=== PATIENT | male | born 1960 | race Caucasian/White ===

== ENCOUNTER 2021-03-14 06:48 | Day surgery (SDC) | payer OTHER, SELFPAY ==
[2021-03-14 07:15] VITALS: BP 134/83; PULSE 56; RESP 16; TEMP 36.4; O2SAT 95; BMI 30.7
[2021-03-14] MEDS: Lactated Ringers 1,000 ML 100 ML IV (07:34)
--- NOTE | 2021-03-14 07:34 | HP.PCM_ITS ---
Problem List (1) History of colon cancer Status: Acute History of Present Illness Date of Admission: 03/14/21 The patient is a 60 year old M for a colonoscopy. He has a personal history of colon cancer. His most recent colonoscopy was December 2015. He has had both a ascending and splenic flexure colon cancer resected. He otherwise feels that he has good health. He has no specific complaints today. No bright red blood per rectum or melena Past Medical History Allergies No Known Allergies Allergy (Verified 03/14/21 07:13) Home Medications: Ambulatory Orders Medication Instructions Recorded Aspirin [Aspirin, Baby] 81 mg PO DAILY@0800 01/26/16 Cholecalciferol (VIT D3) [Vitamin 5,000 unit PO DAILY 01/26/16 D] metFORMIN HCl [Glucophage] 500 mg PO BIDCM 01/26/16 Smoking Status: Never smoker Tobacco Use: Non-smoker Review of Systems Constitutional: Denies: Fever Cardiovascular: Denies: Chest Pain Respiratory: Denies: Cough Gastrointestinal: Denies: Abdominal Pain, Melena Endocrine: Denies: Change in Body Habitus VTE Information - Inpt Only VTE Present on Admission: No - Physical Exam Vitals/I&O's: Vital Signs Temp Pulse Resp BP Pulse Ox 97.5 F L 56 L 16 134/83 H 95 03/14/21 07:15 03/14/21 07:15 03/14/21 07:15 03/14/21 07:15 03/14/21 07:15 Oxygen Delivery Method Room Air Weight: 201 lb 11.567 oz Body Mass Index (BMI) 30.7 General: Alert, Oriented x3, Cooperative, No apparent distress Oral: Moist Mucosa Lungs: Normal air movement Cardiovascular: Regular rate, Regular Rhythm Abdomen: Soft, Non Tender Extremities: No Calf Tenderness Current Medications Lactated Ringer's () 1,000 mls @ 100 mls/hr IV .Q10H [facility] Assessment/Plan All Active Problems History of colon cancer (Acute) The patient presents via open access today for a colonoscopy with possible biopsy or polypectomy is indicated. He is aware of the technique, benefit, risk, alternatives. He has had an opportunity to ask and have questions answered. We will proceed as noted. Rupert Aviles M.D., F.A.C.S.
[2021-03-14 07:40] LABS: Bedside Glucose 90 mg/dL (70-110)
[2021-03-14 08:27] VITALS: BP 134/83; BP 96/62; PULSE 84; RESP 18; TEMP 36.4; O2SAT 93
--- NOTE | 2021-03-14 08:29 | OP.CCLET_ITS ---
03/14/2021 Helena Mae [address] [place] [address] Re : Colonoscopy procedure for Shan Goyal Dear Dr. Mae This procedure was performed on Sunday, March 14, 2021. My impressions and recommendations are as follows: Impressions : - Hemorrhoids found on perianal exam. - Patent functional end-to-end colo-colonic anastomosis, characterized by healthy appearing mucosa. - Diverticulosis in the sigmoid colon. - No specimens collected. Recommendations : - Discharge patient to home. - Resume previous diet. - Continue present medications. - Repeat colonoscopy in 5 years for surveillance. My findings are described in the full procedure note, which is enclosed. If I can be of further assistance, please feel free to contact me at Doctor phone number(s): Work: . Sincerely, Rupert Aviles MD 03/14/2021 8:29:27 AM This report has been signed electronically.
--- NOTE | 2021-03-14 08:29 | OP.COLON_ITS ---
Patient Name: Shan Goyal Procedure Date: 03/14/2021 8:03 AM Date of : 1960 Age: 60 Procedure: Colonoscopy Indications: High risk colon cancer surveillance: Personal history of colon cancer Providers: Rupert Aviles MD Referring MD: Helena Mae Medicines: See the Anesthesia note for documentation of the administered medications Patient Profile: Last Colonoscopy: December 2015. Complications: No immediate complications. Procedure: Pre-Anesthesia Assessment: - Prior to the procedure, a History and Physical was performed, and patient medications and allergies were reviewed. The patient's tolerance of previous anesthesia was also reviewed. The risks and benefits of the procedure and the sedation options and risks were discussed with the patient. All questions were answered, and informed consent was obtained. Prior Anticoagulants: The patient has taken no previous anticoagulant or antiplatelet agents. ASA Grade Assessment: II - A patient with mild systemic disease. After reviewing the risks and benefits, the patient was deemed in satisfactory condition to undergo the procedure. After I obtained informed consent, the scope was passed under direct vision. Throughout the procedure, the patient's blood pressure, pulse, and oxygen saturations were monitored continuously. The colonoscope was introduced through the anus and advanced to the cecum, identified by appendiceal orifice and ileocecal valve. The colonoscopy was performed without difficulty. The patient tolerated the procedure well. The quality of the bowel preparation was good. The ileocecal valve and the appendiceal orifice were photographed. Scope In: 8:14:23 AM Scope Withdrawal Time 0 hours 6 minutes 44 seconds Scope Out: 8:24:45 AM Total Procedure Duration Time 0 hours 10 minutes 22 seconds Findings: Hemorrhoids were found on perianal exam. There was evidence of a prior functional end-to-end colo-colonic anastomosis at the splenic flexure. This was patent and was characterized by healthy appearing mucosa. Scattered diverticula were found in the sigmoid colon. Impression: - Hemorrhoids found on perianal exam. - Patent functional end-to-end colo-colonic anastomosis, characterized by healthy appearing mucosa. - Diverticulosis in the sigmoid colon. - No specimens collected. Recommendation: - Discharge patient to home. - Resume previous diet. - Continue present medications. - Repeat colonoscopy in 5 years for surveillance. Procedure Code(s): --- Professional --- G0105, Colorectal cancer screening; colonoscopy on individual at high risk Diagnosis Code(s): --- Professional --- Z85.038, Personal history of other malignant neoplasm of large intestine K64.9, Unspecified hemorrhoids Z98.0, Intestinal bypass and anastomosis status K57.30, Diverticulosis of large intestine without perforation or abscess without bleeding CPT copyright 2017 [employer]. All rights reserved. The codes documented in this report are preliminary and upon business support professional review may be revised to meet current compliance requirements. Rupert Aviles MD 03/14/2021 8:29:27 AM This report has been signed electronically. Number of Addenda: 0 Note Initiated On: 03/14/2021 8:03 AM
[2021-03-14 08:30] VITALS: BP 100/58; BP 134/83; PULSE 79; RESP 18; O2SAT 95
[2021-03-14 08:35] VITALS: BP 134/83; BP 95/58; PULSE 78; RESP 18; O2SAT 94
[2021-03-14 08:40] VITALS: BP 100/64; BP 134/83; PULSE 76; RESP 18; TEMP 36.6; O2SAT 97
[2021-03-14 09:02] VITALS: BP 134/83
== END 2021-03-14 09:06 | disposition home or self-care (01) ==
LOC: EN 06:52 → AC 06:54
PROVIDERS: PCP Internal Medicine; Referring Provider Internal Medicine; Visit Provider Surgery
PROC: 0DJD8ZZ Inspection of Lower Intestinal Tract, Via Natural or Artificial Opening Endoscopic (ICD-10-PCS; CPT 45378; principal; 2021-03-14 07:55)
DX: Z12.11 Encounter for screening for malignant neoplasm of colon (principal); K57.30 Diverticulosis of large intestine without perforation or abscess without bleeding; K64.9 Unspecified hemorrhoids; Z98.0 Intestinal bypass and anastomosis status; Z79.82 Long term (current) use of aspirin; Z85.038 Personal history of other malignant neoplasm of large intestine; Z92.21 Personal history of antineoplastic chemotherapy
CPT/HCPCS: 45378; 82962; J7120; J2405

== ENCOUNTER 2023-02-16 16:49 | Emergency (ER) | payer OTHER, SELFPAY ==
[2023-02-16 16:50] VITALS: BP 175/153; PULSE 103; RESP 18; TEMP 36.8; O2SAT 97; BMI 30.9
--- NOTE | 2023-02-16 17:49 | CT_ITS ---
STUDY: CT Abdomen And Pelvis W/O Contrast Injection 02/16/2023 6:30 PM REASON FOR EXAM: Male, 62 years old. RT SIDED ABD PAIN RADIATING INTO BACK HX:CONON CANCER WITH COLECTOMY,CHOLECYSTECTOMY flank pain Individualized dose optimization techniques were used for this CT. COMPARISON: None. TECHNIQUE: CT Abdomen And Pelvis W/O Contrast Injection FINDINGS: There are atherosclerotic calcifications of visualized coronary arteries. The visualized portions of the heart are within normal limits. There is decreased attenuation of the liver consistent with steatosis. There are surgical clips in the gallbladder fossa consistent with a prior cholecystectomy. There are multiple benign calcified granulomata of the spleen. Normal pancreas. Normal bilateral adrenal glands. Mild hydronephrosis caused by right proximal 3.3 mm and 3.7 mm ureteral stone. Non obstructive 2 mm left renal parenchymal stones. Normal visualized stomach. Prior large bowel surgery. There are multiple colonic diverticula consistent with diverticulosis. There is non-visualization of the appendix. There are calcifications of the abdominal aorta. This is consistent for atherosclerotic disease. There is NO abdominal aortic aneurysm. Vascular workup can be obtained based on clinical correlation. Normal inferior vena cava. Subcentimeter mesenteric lymph nodes. Normal urinary bladder. There is an umbilical hernia containing fat. There are diffuse degenerative changes of the visualized lumbar spine. CT/Abdomen/Pelvis without Cont IMPRESSION: (NOT LISTED IN ORDER OF SIGNIFICANCE) Fatty liver. Mild hydronephrosis caused by right proximal 3.3 mm and 3.7 mm ureteral stone. There are surgical clips in the gallbladder fossa consistent with a prior cholecystectomy. Other findings as above. Electronically Signed: John Mcfarlane MD at 18:34 EDT ,
--- NOTE | 2023-02-16 17:50 | EX.ED.DYSGE1 ---
HPI History of Present Illness Chief Complaint: Abd Pain Detail of Chief Complaint: Right flank pain Informant: patient Narrative Narrative: Patient presents with right flank pain that started today at work. He describes pain from the right CVA around into the right mid upper abdomen. He had his gallbladder removed several years ago but states the pain felt similar to that. He had a small bowel movement without improvement in his pain. He was nauseated. He states at this time pain is significantly improved but not resolved. He also reports a history of colon cancer and had 14 inches of his bowel removed. He underwent chemotherapy following this. He states he has had routine follow-ups with no evidence of recurrence. [facility] Medical History History of colon cancer Home Medications aspirin 81 mg chewable tablet 81 mg PO DAILY@0800 01/26/16 [History Last Taken 03/08/21] cholecalciferol (vitamin D3) 25 mcg (1,000 unit) tablet (Vitamin D3) 5,000 unit PO DAILY 01/26/16 [History Last Taken Unknown] metformin 500 mg tablet 500 mg PO BIDCM 01/26/16 [History Last Taken Unknown] hydrocodone-acetaminophen 5-325mg 5mg-325mg 1 tab PO Q6H PRN PRN Pain 3 days #10 TABLETS 02/16/23 [Rx Last Taken Unknown] ondansetron 4 mg disintegrating tablet 4 mg PO Q8H PRN PRN Nausea #10 tabs 02/16/23 [Rx Last Taken Unknown] tamsulosin 0.4 mg capsule (Flomax) 0.4 mg PO DAILY #10 caps 02/16/23 [Rx Last Taken Unknown] Allergy/AdvReac Type Severity Reaction Status Date / Time No Known Allergies Allergy Verified 03/14/21 07:13 Surgical History History of cholecystectomy Social History Smoking Status: Never smoker ROS ROS ED Constitutional Constitutional ED: Denies chills or fever(s) Eyes Eyes: Denies change in vision or discharge from eye(s) ENT ENT ED: Denies discharge from eye(s), rhinorrhea or sore throat Cardiovascular Cardiovascular: Denies chest pain or palpitations Respiratory/Chest Respiratory/Chest: Denies cough or dyspnea Gastrointestinal Gastrointestinal: Reports abdominal pain and nausea; Denies diarrhea or vomiting Genitourinary Genitourinary ED: Denies difficulty urinating, dysuria or hematuria Musculoskeletal Musculoskeletal: Reports back pain; Denies extremity pain Integumentary Denies Abrasions or rash Neurologic Neurologic: Denies headache(s) or weakness Allergic/Immunologic Allergic/Immunologic ED: Denies lip swelling or urticaria EXAM Physical Exam Const Vital Signs: 02/16/23 16:50 02/16/23 19:55 02/16/23 20:17 Temperature 98.2 F Temperature Source Temporal Pulse Rate 103 H 75 75 Respiratory Rate 18 15 15 Blood Pressure 175/153 H 132/71 H 132/71 H Blood Pressure Mean 160 91 Pulse Ox 97 97 97 Oxygen Delivery Method Room Air Room Air Positive well nourished and well developed General Appearance ED: well developed HEENT Reports normocephalic and head/scalp atraumatic Eyes PERRL and EOMs intact bilaterally Neck supple Chest Wall inspection of chest normal and palpation of chest normal Resp normal respiratory effort and clear to auscultation bilaterally Cardio regular rate and regular rhythm GI normal to inspection, nondistended, normoactive bowel sounds Palpation: soft Back/Spine no CVA tenderness Extremity normal to inspection Neuro oriented x3 and no sensory deficits noted Sensorium / Orientation: alert Motor Exam: strength 5/5 throughout Psych mental status grossly normal Skin no rashes or lesions noted MDM MDM MDM Narrative Medical decision making narrative: Patient declined anything for pain at the time of my examination stating that his pain is currently improved. Labwork obtained to evaluate for leukocytosis, anemia, and electrolyte derangement. Urinalysis obtained to evaluate for infection/hematuria. CT flank obtained to evaluate for possible kidney stone. Lab Data Attestation: I reviewed the patient's lab results. Labs: Laboratory Results - last 24 hr 02/16/23 02/16/23 02/16/23 17:48 17:55 17:55 WBC 8.1 RBC 4.02 L Hgb 13.3 Hct 39.1 L MCV 97.3 H MCH 33.1 H MCHC 34.0 RDW Std Deviation 45.1 H RDW Coeff of [place] 12.6 Plt Count 315 MPV 10.5 Immature Gran % (Auto) 0.200 Neut % (Auto) 78.5 H Lymph % (Auto) 13.6 L [place] % (Auto) 7.5 Eos % (Auto) 0.0 Baso % (Auto) 0.2 Absolute Neuts (auto) 6.4 Absolute Lymphs (auto) 1.10 Nucleated RBC % 0 Sodium 142 Potassium 3.5 Chloride 109 H Carbon Dioxide 28.0 Anion Gap 5 BUN 15 Creatinine 1.24 Estim Creat Clear Calc 59.76 Est GFR (MDRD) Af Amer 76 Est GFR (MDRD) Non-Af 63 BUN/Creatinine Ratio 12.1 Glucose 108 H Calcium 8.5 Total Bilirubin 0.50 Direct Bilirubin 0.17 AST 65 H ALT 73 H Alkaline Phosphatase 80 Total Protein 7.2 Albumin 3.7 Globulin 3.5 Lipase 223 Urine Color Yellow Urine Clarity Clear Urine pH 6.5 Ur Specific [place] 1.020 Urine Protein 30 H Urine Glucose (UA) Normal Urine Ketones 150 A* Urine Occult Blood 250 H Urine Nitrite Negative Urine Bilirubin Negative Urine Urobilinogen 1 H Ur Leukocyte Esterase 25 H Urine RBC 50-100 SEEN Urine WBC 0 SEEN Ur Squamous Epith Cells 0 SEEN Urine Bacteria 0 SEEN Urine Mucus 0 SEEN Radiography Diagnostic Testing: Clinical Impression(s) from Imaging Studies Abdomen/Pelvis CT 02/16/23 17:49 IMPRESSION: (NOT LISTED IN ORDER OF SIGNIFICANCE) Fatty liver. Mild hydronephrosis caused by right proximal 3.3 mm and 3.7 mm ureteral stone. There are surgical clips in the gallbladder fossa consistent with a prior cholecystectomy. Other findings as above. Electronically Signed: John Mcfarlane MD at 18:34 EDT Reading Location ID and State: [facility] / [place] , Service support , Treatment and Re-Evaluation :: CBC was normal white count and hemoglobin. No left shift. Chemistry studies unremarkable. LFTs and lipase normal. Urinalysis does reveal 50-100 RBCs with no evidence of infection. CT flank reveals mild hydronephrosis caused by 2 right ureteral kidney stones. 1 stone measures 3.3 mm and one stone measures 3.7 mm. Repeat evaluation patient remains pain-free at this time. Test results are discussed with him. Analgesics and antiemetics are sent to the pharmacy for him. Return instructions provided as well as urology information for follow-up. Discharge Plan Triage Chief Complaint: Abd Pain ED Provider: Sol Rain Dx/Rx/DC Orders Clinical Impression: Ureterolithiasis Instructions: ED Kidney Stone w/ Colic Prescriptions: New hydrocodone-acetaminophen 5-325 mg tablet 1 tab PO Q6H PRN PRN (Reason: Pain) 3 Days Qty: 10 0RF ondansetron 4 mg tablet,disintegrating 4 mg PO Q8H PRN PRN (Reason: Nausea) Qty: 10 0RF tamsulosin [Flomax] 0.4 mg capsule 0.4 mg PO DAILY Qty: 10 0RF No Action metformin 500 MG tablet 500 mg PO BIDCM aspirin 81 MG tablet,chewable 81 mg PO DAILY@0800 cholecalciferol (vitamin D3) [Vitamin D3] 1,000 UNIT tablet 5,000 unit PO DAILY Primary Care Provider: Helena Mae Referrals: Ulises Roper MD [Med Staff - Active Staff] - As Needed Helena Mae DO [Primary Care Provider] - Disposition Disposition: Home, Self Care Discharge Date/Time: 02/16/23 20:18
[2023-02-16] MEDS: 0.9% Normal Saline 1,000 ML 150 ML IV (18:00)
[2023-02-16 18:03] LABS: Bacteria 0 SEEN /hpf (None Seen); Mucous, Urine 0 SEEN /hpf (<or=2+); Squamous Epithelial Cells - UA 0 SEEN /hpf (0-5); White Blood Cells 0 SEEN /hpf (0-5)
[2023-02-16 18:11] LABS: Absolute Neutrophil Count 6.4 X10^3/uL (2.0-7.7); Basophil# 0.02 X10^3/uL; Basophil% 0.2 % (0-1); Hematocrit 39.1 % (40-54); Hemoglobin 13.3 g/dL (13.0-16.5); Lymphocyte % 13.6 % (19-41); Mean Corpuscular Hgb 33.1 pg (27.0-32.0); Mean Corpuscular Volume 97.3 fL (80-94); Mean Platelet Vol. 10.5 fl (6.2-12.0); Monocyte# 0.61 X10^3/uL; Monocyte% 7.5 % (0-10); NRBC Flagged by Analyzer 0 % (0-5); Neutrophil # 6.36 X10^3/uL (2.7-7.7); Neutrophil % 78.5 % (47-70); Platelet Count 315 K/mm3 (150-450); RBC Distribution Width CV 12.6 % (11.6-14.6); RBC Distribution Width SD 45.1 fl (35.1-43.9); Red Blood Count 4.02 M/mm3 (4.6-6.2); White Blood Count 8.1 K/mm3 (4.4-11.0)
[2023-02-16 18:15] LABS: Color, Urine Yellow (Yellow); Glucose, Dipstick Normal (Normal); Leukocyte Esterase-Dipstick 25 /ul (Negative); Nitrite-Dipstick Negative (Negative); Occult Blood-Urine 250 /ul (Negative); Protein-Dipstick 30 mg/dl (Negative); Urine Bilirubin Dipstick Negative (Negative); Urine Clarity Clear (Clear); Urine Urobilinogen 1 mg/dl (Normal); Urine pH 6.5 (5.0 - 8.0)
[2023-02-16 18:18] LABS: Ketone-Dipstick 150 mg/dl (Negative)
--- NOTE | 2023-02-16 18:19 | ED.RN ---
LAB CALLED CRITICAL OF 150 KETONES IN URINE
[2023-02-16 18:23] LABS: AST(SGOT) 65 U/L (15-37); Alanine Aminotransfer ALT/SGPT 73 U/L (16-61); Albumin, Serum 3.7 g/dL (3.2-5.0); Alkaline Phosphatase 80 U/L (45-117); Anion Gap 5 (5-15); BUN 15 mg/dL (7-18); BUN/Creat Ratio 12.1 RATIO (10-20); Bilirubin, Direct 0.17 mg/dL (0.00-0.30); Calcium,Total 8.5 mg/dL (8.5-10.1); Chloride 109 mmol/L (98-107); Creatinine, Serum 1.24 mg/dL (0.70-1.30); EST Glomerular Filtration Rate 63 mL/min (>60); Est Glom Filt Rate - Afr Amer 76 mL/min (>60); Estimated Creatinine Clearance 59.76 ml/min; Globulin 3.5 g/dL (2.2-4.2); Glucose 108 mg/dL (74-106); Lipase 223 U/L (73-393); Potassium 3.5 mmol/L (3.5-5.1); Protein, Total 7.2 g/dL (6.4-8.2); Sodium Level 142 mmol/L (136-145)
[2023-02-16 19:09] LABS: Red Blood Cells-Urine 50-100 SEEN /hpf (0-5)
[2023-02-16 19:55] VITALS: BP 132/71; PULSE 75; RESP 15; O2SAT 97
[2023-02-16 20:17] VITALS: BP 132/71; PULSE 75; RESP 15; O2SAT 97
== END 2023-02-16 20:18 | disposition home or self-care (01) ==
PROVIDERS: Emergency Provider Emergency Medicine; PCP Internal Medicine; Visit Provider Emergency Medicine
DX: N13.2 Hydronephrosis with renal and ureteral calculous obstruction (principal); Z79.82 Long term (current) use of aspirin; Z79.84 Long term (current) use of oral hypoglycemic drugs
CPT/HCPCS: 74176; 80048; 80076; 81001; 83690; 85025; 99283; J7030; A4216

== ENCOUNTER → 2023-03-24 | Outpatient (CLI) | payer OTHER, SELFPAY ==
--- NOTE | 2023-03-24 10:01 | US_ITS ---
STUDY: ABDOMINAL ULTRASOUND - ELASTOGRAPHY REASON FOR VISIT: Male, 62 years old. Elevated N size. TECHNIQUE: Liver stiffness measurements were obtained on a [employer] RS 85 ultrasound machine using a CA 1-7 probe following the SRU guidelines. 3 measurements were obtained using a 2-D-SWE method. TheIQR/M was 12% suggesting a quality data set. TECHNICAL QUALITY: Adequate. COMPARISON: None. FINDINGS: Liver: There is no demonstrated mass lesion. Median liver stiffness measured 7.5 kPa. Abdomen: There is no demonstrated mass lesion. US/ABD Limited w/ Elastography IMPRESSION: Liver stiffness measures 7.5 kPa compatible with F2-F3 (Mild to moderate liver fibrosis) Metavir score. Electronically Signed: Sathish Sherwood MD at 9:08 EDT ,
== END | disposition home or self-care (01) ==
LOC: US 09:58
PROVIDERS: PCP Internal Medicine; Referring Provider Internal Medicine; Visit Provider Internal Medicine
DX: R74.8 Abnormal levels of other serum enzymes (principal)
CPT/HCPCS: 76705; 76981

== ENCOUNTER 2023-06-01 20:05 | Observation (INO) | payer OTHER, SELFPAY ==
[2023-06-01 20:06] VITALS: BP 153/69; PULSE 55; RESP 16; TEMP 36.4; O2SAT 100; BMI 31.1
[2023-06-01 20:39] LABS: Absolute Lymphocyte Count 1.33 X10^3/uL (0.83-4.51); Absolute Neutrophil Count 7.8 X10^3/uL (2.0-7.7); Basophil# 0.02 X10^3/uL; Basophil% 0.2 % (0-1); Eosinophil# 0.05 X10^3/uL; Eosinophils% 0.5 % (0-5); Hemoglobin 14.4 g/dL (13.0-16.5); Lymphocyte # 1.33 X10^3/ul (0.83-4.51); Lymphocyte % 13.2 % (19-41); Mean Corp Hgb Conc 33.5 g/dL (32-36); Mean Corpuscular Volume 98.6 fL (80-94); Mean Platelet Vol. 10.6 fl (6.2-12.0); Monocyte# 0.84 X10^3/uL; Monocyte% 8.3 % (0-10); NRBC Flagged by Analyzer 0 % (0-5); Neutrophil # 7.81 X10^3/uL (2.7-7.7); Neutrophil % 77.5 % (47-70); Platelet Count 330 K/mm3 (150-450); RBC Distribution Width CV 12.9 % (11.6-14.6); RBC Distribution Width SD 46.8 fl (35.1-43.9); Red Blood Count 4.36 M/mm3 (4.6-6.2); White Blood Count 10.1 K/mm3 (4.4-11.0)
[2023-06-01 21:01] LABS: Anion Gap 8 (5-15); BUN 20 mg/dL (7-18); BUN/Creat Ratio 10.3 RATIO (10-20); Chloride 109 mmol/L (98-107); Creatinine, Serum 1.94 mg/dL (0.70-1.30); EST Glomerular Filtration Rate 37 mL/min (>60); Est Glom Filt Rate - Afr Amer 45 mL/min (>60); Glucose 190 mg/dL (74-106); Potassium 3.8 mmol/L (3.5-5.1); Sodium Level 141 mmol/L (136-145)
[2023-06-01 21:10] LABS: Bacteria 0 SEEN /hpf (None Seen); Mucous, Urine 0 SEEN /hpf (<or=2+); Squamous Epithelial Cells - UA 0 SEEN /hpf (0-5)
[2023-06-01 21:12] LABS: Color, Urine Yellow (Yellow); Glucose, Dipstick 50 mg/dl (Normal); Ketone-Dipstick 15 mg/dl (Negative); Leukocyte Esterase-Dipstick 25 /ul (Negative); Nitrite-Dipstick Negative (Negative); Occult Blood-Urine 150 /ul (Negative); Protein-Dipstick 30 mg/dl (Negative); Urine Bilirubin Dipstick Negative (Negative); Urine Clarity Cloudy (Clear); Urine Urobilinogen Normal (Normal)
[2023-06-01 21:17] LABS: Amorphous Sediment 1+; Red Blood Cells-Urine 10-25 SEEN /hpf (0-5); White Blood Cells 0-5 SEEN /hpf (0-5)
--- NOTE | 2023-06-01 21:56 | CT_ITS ---
STUDY: CT ABDOMEN AND PELVIS WITHOUT CONTRAST REASON FOR EXAM: Male, 62 years old. flank pain RADIATION DOSAGE (If Supplied By Facility): CTDIvol = ( 10.17 ) mGy, DLP = ( 531.29 ) mGycm TECHNIQUE: Transaxial images were obtained from the dome of the diaphragm to the symphysis pubis without oral contrast, and without intravenous contrast. Sagittal and coronal images were reconstructed. Individualized dose optimization techniques were used for this CT. COMPARISON: None. FINDINGS: The visualized lung bases are unremarkable. The visualized portions of the heart are within normal limits. Normal liver. There are surgical clips in the gallbladder fossa consistent with a prior cholecystectomy. There are multiple benign calcified granulomata of the spleen. Normal pancreas. Normal bilateral adrenal glands. Right kidney has a 3 mm nonobstructing lower pole stone and is otherwise negative. Abnormal left kidney showing evidence of edema and perinephric stranding, along with mild hydronephrosis. There is a 7 mm proximal to mid ureteral stone. See coronal image 63 Additional 2 mm nonobstructing lower pole stone. Normal visualized stomach. Normal small intestine. Previous partial left colectomy. No dilated loops of bowel or evidence for obstruction. The appendix is visualized and appears normal. Normal abdominal aorta. Normal inferior vena cava. Normal retroperitoneum. Normal urinary bladder. Normal abdominal wall. Normal osseous structures. CT/Abdomen/Pelvis without Cont IMPRESSION: Obstruction of the left kidney and collecting system from a 7 mm proximal to mid left ureteral stone. Additional bilateral nonobstructing stones. Electronically Signed: Erick Vazquez MD at 22:45 EDT ,
--- NOTE | 2023-06-01 21:57 | EX.ED.GUMALE ---
HPI History of Present Illness Chief Complaint: Flank Pain Narrative Narrative: 62-year-old male presenting with left flank pain. He has a history of kidney stones in the past. He sees Dr. Roper. He states he recently had stents done in [place] when he is out of town. He followed up with Dr. Roper who laser of the stones and took out the left renal stent. He replaced the right renal stent. Patient states that this was removed later and he does not have any stents now. He thought he was doing well until he developed sharp left-sided flank pain today. He has nausea as well. The pain radiates into his left inguinal region and testicle. No fevers. No diarrhea or constipation. [facility] Medical History History of colon cancer Home Medications aspirin 81 mg chewable tablet 81 mg PO DAILY@0800 01/26/16 [History Last Taken 03/08/21] cholecalciferol (vitamin D3) 25 mcg (1,000 unit) tablet (Vitamin D3) 5,000 unit PO DAILY 01/26/16 [History Last Taken Unknown] metformin 500 mg tablet 500 mg PO BIDCM 01/26/16 [History Last Taken Unknown] Allergy/AdvReac Type Severity Reaction Status Date / Time No Known Allergies Allergy Verified 06/01/23 20:08 Surgical History History of cholecystectomy Social History Smoking Status: Never smoker ROS ROS ED Constitutional Constitutional ED: Denies chills, fever(s) or sweats Eyes Eyes: Denies blurry vision or change in vision ENT ENT ED: Denies ear pain or sore throat Cardiovascular Cardiovascular: Denies chest pain, palpitations or racing heartbeat Respiratory/Chest Respiratory/Chest: Denies cough, dyspnea or sputum Gastrointestinal Gastrointestinal: Reports abdominal pain and nausea; Denies constipation, diarrhea or vomiting Genitourinary Genitourinary ED: Denies dysuria, hematuria or urinary frequency Musculoskeletal Musculoskeletal: Reports back pain; Denies arthralgias, myalgias or neck pain Integumentary Denies abscess, Abrasions or rash Neurologic Neurologic: Denies headache(s), paresthesias or weakness Psychiatric Psychiatric: Denies anxiety, depression, suicidal ideation or suicidal thoughts Endocrine Endocrinology: Denies polydipsia or polyuria EXAM Physical Exam Const Vital Signs: 06/01/23 20:06 Temperature 97.5 F L Temperature Source Temporal Pulse Rate 55 L Respiratory Rate 16 Blood Pressure 153/69 H Blood Pressure Mean 97 Pulse Ox 100 Oxygen Delivery Method Room Air Positive well nourished General Appearance ED: NAD; Negative for pallor HEENT Reports moist mucous membranes normocephalic and atraumatic Eyes EOMs intact bilaterally Resp normal respiratory effort and clear to auscultation bilaterally Cardio regular rate and regular rhythm GI non-tender Palpation: soft Bladder / Kidney Exam: CVA tenderness left Extremity normal to inspection General Extremety ED: Yes edema General Extremity: edema Neuro oriented x3 and CN's II-XII intact bilaterally Sensorium / Orientation: alert Psych mental status grossly normal Skin General Skin Exam: Negative for jaundice or pallor MDM MDM MDM Narrative Medical decision making narrative: Patient presenting with left flank pain. He states it feels like kidney stones. It is sharp and radiates to the inguinal area. CBC to assess white blood cell count, hemoglobin, platelets. BMP to assess renal function and electrolytes. Patient medicated with Dilaudid, Zofran. Normal saline. CT of the abdomen pelvis will be obtained. CBC shows no leukocytosis. Hemoglobin stable 14.4. Creatinine is elevated today at 1.94 and GFR is down to 37. Patient with normal renal function in January of this year. Urinalysis shows occult blood without evidence of infection. Patient feeling better after Dilaudid. CT of the abdomen pelvis without contrast was obtained and this shows a 7 mm proximal ureteral stone. Since the patient did not get better today with Percocet at home he is concerned about going home due to the pain. I will talk to Dr. Roper regarding admission. Impression: 1. 7 mm ureteral calculi 2. Hydronephrosis 3. Acute kidney injury Lab Data Attestation: I reviewed the patient's lab results. Labs: Laboratory Results - last 24 hr 06/01/23 06/01/23 20:30 21:05 WBC 10.1 RBC 4.36 L Hgb 14.4 Hct 43.0 MCV 98.6 H MCH 33.0 H MCHC 33.5 RDW Std Deviation 46.8 H RDW Coeff of [place] 12.9 Plt Count 330 MPV 10.6 Immature Gran % (Auto) 0.300 Neut % (Auto) 77.5 H Lymph % (Auto) 13.2 L [place] % (Auto) 8.3 Eos % (Auto) 0.5 Baso % (Auto) 0.2 Absolute Neuts (auto) 7.8 H Absolute Lymphs (auto) 1.33 Nucleated RBC % 0 Sodium 141 Potassium 3.8 Chloride 109 H Carbon Dioxide 24.0 Anion Gap 8 BUN 20 H Creatinine 1.94 H Estim Creat Clear Calc 38.20 Est GFR (MDRD) Af Amer 45 L Est GFR (MDRD) Non-Af 37 L BUN/Creatinine Ratio 10.3 Glucose 190 H Calcium 9.0 Urine Color Yellow Urine Clarity Cloudy Urine pH 7.0 Ur Specific [place] 1.010 Urine Protein 30 H Urine Glucose (UA) 50 H Urine Ketones 15 H Urine Occult Blood 150 H Urine Nitrite Negative Urine Bilirubin Negative Urine Urobilinogen Normal Ur Leukocyte Esterase 25 H Urine RBC 10-25 SEEN Urine WBC 0-5 SEEN Ur Squamous Epith Cells 0 SEEN Amorphous Sediment 1+ Urine Bacteria 0 SEEN Urine Mucus 0 SEEN Radiography Diagnostic Testing: Clinical Impression(s) from Imaging Studies Abdomen/Pelvis CT 06/01/23 21:56 IMPRESSION: Obstruction of the left kidney and collecting system from a 7 mm proximal to mid left ureteral stone. Additional bilateral nonobstructing stones. Electronically Signed: Erick Vazquez MD at 22:45 EDT , Discharge Plan Triage Chief Complaint: Flank Pain ED Provider: Shan Hodges Dx/Rx/DC Orders Prescriptions: No Action metformin 500 MG tablet 500 mg PO BIDCM aspirin 81 MG tablet,chewable 81 mg PO DAILY@0800 cholecalciferol (vitamin D3) [Vitamin D3] 1,000 UNIT tablet 5,000 unit PO DAILY Primary Care Provider: Helena Mae Referrals: Helena Mae DO [Primary Care Provider] -
[2023-06-01] MEDS: 0.9% Normal Saline 1,000 ML 999 ML IV (22:12)
[2023-06-01] MEDS: Ondansetron 4 MG/2 ML Vial IV (22:13)
[2023-06-01] MEDS: HYDROmorphone 1 MG/ML Syringe IV (22:13)
[2023-06-02] VITALS (10 sets, daily range): BP systolic 98–141; BP diastolic 64–81; PULSE 59–103; RESP 16–18; TEMP 36.7–37; O2SAT 91–97; BMI 30.1
[2023-06-02] MEDS: Morphine 2 MG/ML Syringe IV ×3 (02:17→14:17)
[2023-06-02] MEDS: 0.9% Saline Lock 10 ML Syringe IV ×2 (08:44→14:17)
[2023-06-02] MEDS: Ondansetron 4 MG/2 ML Vial IV (08:44)
--- NOTE | 2023-06-02 12:13 | PCM.HP.STD ---
HPI - General General Date of Admission: 06/01/23 Date of Service: 06/01/23 Chief Complaint: Left kidney stone HPI Narrative RAMIREZ JACKSON, is a 62 M who presents to the emergency room with a stone in the mid left ureter with severe pain patient is was given pain medicine in the emergency room and was given Dilaudid which controlled the pain but the patient did not want to go home because he is concerned that the pain would come back so he wishes to be admitted to have pain controlled so we will add him onto the schedule for cystoscopy stent placement. [facility] Medical History History of colon cancer Home Medications aspirin 81 mg chewable tablet 81 mg PO DAILY@0800 01/26/16 [History Last Taken 06/01/23] cholecalciferol (vitamin D3) 25 mcg (1,000 unit) tablet (Vitamin D3) 5,000 unit PO DAILY 01/26/16 [History Last Taken 05/30/23] metformin 500 mg tablet 500 mg PO BIDCM 01/26/16 [History Last Taken 06/01/23] cephalexin 500 mg capsule 500 mg PO BID #10 caps 06/02/23 [Rx Last Taken Unknown] oxycodone 5 mg tablet 5 mg PO Q6H PRN pain 7 days #14 tabs 06/02/23 [Rx Last Taken Unknown] Allergy/AdvReac Type Severity Reaction Status Date / Time No Known Allergies Allergy Verified 06/01/23 20:08 Surgical History History of cholecystectomy Social History Smoking Status: Never smoker Vital Signs Vital Signs Vital Signs: 06/01/23 20:06 06/02/23 00:32 06/02/23 00:33 Temperature 97.5 F L 98.4 F Temperature Source Temporal Oral Pulse Rate 55 L 103 H Respiratory Rate 16 18 18 Respiratory Effort Respiratory Depth Respiratory Pattern Blood Pressure 153/69 H 132/74 H 133/69 H Blood Pressure Mean 97 93 90 Blood Pressure Source Blood Pressure Position Blood Pressure Location Pulse Ox 100 92 Oxygen Delivery Method Room Air Room Air Room Air 06/02/23 01:46 06/02/23 02:00 06/02/23 07:46 Temperature 98.3 F 98.6 F Temperature Source Oral Oral Pulse Rate 99 97 Respiratory Rate 17 18 Respiratory Effort Normal Non-Labored Respiratory Depth Normal Respiratory Pattern Normal Blood Pressure 128/74 H 132/76 H Blood Pressure Mean 92 94 Blood Pressure Source Monitor Monitor Blood Pressure Position Semi-Fowlers Semi-Fowlers Blood Pressure Location Right Arm Right Arm Pulse Ox 94 97 Oxygen Delivery Method Room Air Room Air Room Air Weight Weight: 89.8 kg Body Mass Index (BMI) 30.1 Physical Exam Const alert and oriented x3 General Appearance: cooperative HEENT normocephalic, head/scalp atraumatic, EAC's normal and TM's normal bilaterally Eyes PERRL and EOMs intact bilaterally Pupil: sluggish Neck no lymphadenopathy, supple and no JVD General: trachea midline Lymph Lymphatic: no lymphadenopathy noted, lymphedema and lymphadenopathy Resp normal respiratory effort, normal air movement and clear to auscultation bilaterally Cardio regular rate, regular rhythm and peripheral pulses 2+ throughout GI soft to palpation, non-tender and non-distended Extremity normal capillary refill and no clubbing, cyanosis or edema General Extremity: no tenderness to palpation of joints or extremities Skin no rashes or lesions noted General Skin Exam: turgor normal Lesions: no lesions Rashes: no rashes Neuro CN's II-XII intact bilaterally Speech: speech normal Motor Exam: strength 5/5 throughout; Negative for general weakness Psych thought process normal, cooperative and affect normal Appearance: appropriate Results Medical Records Data Attestation: I reviewed the patient's medical records Lab / Micro Data 06/01/23 20:30 06/01/23 20:30 Labs: Laboratory Results - last 24 hr 06/01/23 20:30: WBC 10.1, RBC 4.36 L, Hgb 14.4, Hct 43.0, MCV 98.6 H, MCH 33.0 H, MCHC 33.5, RDW Std Deviation 46.8 H, RDW Coeff of Antonio 12.9, Plt Count 330, MPV 10.6, Immature Gran % (Auto) 0.300, Neut % (Auto) 77.5 H, Lymph % (Auto) 13.2 L, Mcdowell % (Auto) 8.3, Eos % (Auto) 0.5, Baso % (Auto) 0.2, Absolute Neuts (auto) 7.8 H, Absolute Lymphs (auto) 1.33, Nucleated RBC % 0, Sodium 141, Potassium 3.8, Chloride 109 H, Carbon Dioxide 24.0, Anion Gap 8, BUN 20 H, Creatinine 1.94 H, Estim Creat Clear Calc 38.20, Est GFR (MDRD) Af Amer 45 L, Est GFR (MDRD) Non-Af 37 L, BUN/Creatinine Ratio 10.3, Glucose 190 H, Calcium 9.0 06/01/23 21:05: Urine Color Yellow, Urine Clarity Cloudy, Urine pH 7.0, Ur Specific [place] 1.010, Urine Protein 30 H, Urine Glucose (UA) 50 H, Urine Ketones 15 H, Urine Occult Blood 150 H, Urine Nitrite Negative, Urine Bilirubin Negative, Urine Urobilinogen Normal, Ur Leukocyte Esterase 25 H, Urine RBC 10-25 SEEN, Urine WBC 0-5 SEEN, Ur Squamous Epith Cells 0 SEEN, Amorphous Sediment 1+, Urine Bacteria 0 SEEN, Urine Mucus 0 SEEN Radiology Impression Abdomen/Pelvis CT 06/01/23 21:56 IMPRESSION: Obstruction of the left kidney and collecting system from a 7 mm proximal to mid left ureteral stone. Additional bilateral nonobstructing stones. Electronically Signed: Erick Vazquez MD at 22:45 EDT , Assessment & Plan Assessment/Plan (1) Left ureteral calculus: PLAN: plan for treatment of stone in OR and stent.
--- NOTE | 2023-06-02 12:15 | DCINST_ITS ---
Discharge Instructions Diet Discharge Diet: No restrictions, Light diet - advance as tolerated and Soft diet Activity Discharge Activity: Return to Normal Activity Follow Up Care Please Follow Up With: Ulises Roper MD When: call my office for instructions. Test Results: Test results from this visit will be discussed in further detail at your follow- up appointment, if applicable. Discharge Plan Admission Admit Date/Time: 06/02/23 02:00 Primary Reason for Your Visit: kidney stone Attending Provider: Ulises Roper Primary Care Provider: Helena Mae Discharge Orders/Prescriptions Prescriptions: New oxycodone 5 mg tablet 5 mg PO Q6H PRN (Reason: pain) 7 Days Qty: 14 0RF cephalexin 500 mg capsule 500 mg PO BID Qty: 10 0RF No Action metformin 500 MG tablet 500 mg PO BIDCM aspirin 81 MG tablet,chewable 81 mg PO DAILY@0800 cholecalciferol (vitamin D3) [Vitamin D3] 1,000 UNIT tablet 5,000 unit PO DAILY Referrals / Follow Up: Helena Mae DO [Primary Care Provider] -
[2023-06-02] MEDS: Lactated Ringers 1,000 ML 15 ML IV (15:13)
[2023-06-02] MEDS: Cefazolin 2 GM in 0.9% Normal Saline 100 ML IV (16:22)
--- NOTE | 2023-06-02 16:41 | PCM.OPRPT ---
Report of Operation Date of Procedure: 06/02/23 Pre-Operative Diagnosis: Obstructing left ureteral calculi Post-Operative Diagnosis: The same Surgery/Procedure Performed:: Cystoscopy left retrograde pyelogram left stent placement Description of Surgical Findings:: Patient was taken back to the operating room after induction of general anesthesia, the patient was placed in dorsolithotomy position. The urethra and genitals were prepped and draped in usual sterile fashion. Using a 21 [place] rigid cystourethroscope the entire length of the urethra was normal then went into the bladder. Identified the trigone the left and right ureteral orifice. I then cannulated the Left orifice and advanced a wire up into the kidney. I then backloaded a 5 [place] open ended catheter over the wire and injected contrast to delineate the anatomy. After the retrograde was performed I then used fluoroscopic images and guidance to advanced a wire up into the kidney and over the 0.038 glidewire I advanced a 6 [place] by 26 cm double pigtail stent. I then pulled the 0.038 Glidewire off and the stent coiled in the kidney bladder good position. The bladder was then drained. We confirmed the position of the stent by fluoroscopy. Patient anesthetic was reversed and was taken back to the PACU in good condition. Surgeon: Ulises Roper Type of Anesthesia: General Drains: left stent Estimated Blood Loss (mL): 0
== END 2023-06-02 18:53 | disposition home or self-care (01) ==
LOC: ED 21:38 → MS3 06-02 01:59
PROVIDERS: Admitting Provider Urology; Emergency Provider Student in an Organized Health Care Education/Training Program; PCP Internal Medicine; Visit Provider Urology
PROC: (CPT 52332; principal; 2023-06-02 15:35)
DX: N13.2 Hydronephrosis with renal and ureteral calculous obstruction (principal); N17.9 Acute kidney failure, unspecified; Z79.82 Long term (current) use of aspirin
CPT/HCPCS: 52332; 00910; 74176; 76000; 80048; 81001; 85025; 96374; 96375; 96376; 99221; 99283; J7030; J7050; J7120; A4216; C1769; C2617; G0378; J2405

== ENCOUNTER → 2025-02-05 | Outpatient (CLI) | payer OTHER, SELFPAY ==
--- NOTE | 2025-02-05 11:24 | MRI_ITS ---
PROCEDURE: PELVIS W/WO CONTRAST (MRIPELWW), 02/05/2025 REASON FOR EXAM: ELEVATED PROSTATE. Reportedly PSA was 5.3 on 12/16/2024 TECHNIQUE: Multisequence multiplanar MRI pelvis was performed with and without IV contrast. CONTRAST: 19 mL Clariscan COMPARISON: None FINDINGS: Note dynamic postcontrast imaging was not performed; an alternative PI-RADS algorithm was therefore utilized. Prostate size: 4.3 x 3.4 x 4.2 cm, estimated volume 32 mL (PSA density 0.17). Transition zone: PI-RADS 2 findings. Additional lesions as below: *Lesion 1: Bilateral anterior transition zone base to midgland, 1.6 cm (series 9 image 15-17).. This extends slightly into the right posterior transition zone base and likely involving the anterior fibromuscular stroma. *T2 score: 3; heterogeneous signal intensity with obscured margins; includes others that do not qualify as 2, 4, or 5. *DWI score: 4; focal, marked hypointensity on ADC and marked hyperintensity on high b-value DWI; <1.5 cm. *DCE: N/A. *Overall PI-RADS: PI-RADS 3. *Extracapsular extension:No definite extracapsular extension, however, there is capsular abutment well over 1 cm which increases the risk of occult early/microscopic extracapsular extension. Peripheral Zone: Fairly prominent background changes of likely prostatitis, making delineation of additional discrete lesions challenging: *Lesion 2: Right posterior peripheral zone base to apex, 1.6 cm (series 9 images 14-18). *T2 score: 3; heterogeneous signal intensity or non-circumscribed, rounded, moderate hypointensity; includes others that do not qualify as 2, 4, or 5. *DWI score: 3; focal (discrete and different from background), mild/moderate hypointensity on ADC and/or mild/moderate hyperintensity on high b-value DWI; may be markedly hypointense on ADC or markedly hyperintense on high b-value DWI, but not both. *DCE: N/A. *Overall PI-RADS: Borderline and possible focally prominent prostatitis but felt the best considered PI-RADS 3. *Extracapsular extension:No definite extracapsular extension, however, there is capsular abutment well over 1 cm which increases the risk of occult early/microscopic extracapsular extension. Note that this includes the region of the right neurovascular bundle, which appears grossly unremarkable. Neurovascular bundles: Unremarkable. Seminal vesicles: Unremarkable. Bladder: Underdistended and suboptimally evaluated, grossly unremarkable. Lymph nodes: Left external iliac node, 11 mm short axis. Bones: No destructive or frankly suspicious bony lesions identified. Hypointense presumed bone island in the parasymphyseal left pubic bone. Degenerative likely paralabral cysts along the superior left acetabulum. Other: Trace hydroceles. Diverticulosis.. Small fat containing inguinal hernias. MRI/Pelvis W/WO Contrast IMPRESSION: 1. Fairly prominent background changes of presumed prostatitis within the perip heral zone, making delineation of discrete peripheral zone lesions challenging. 2. 1.6 cm PI-RADS 3 lesion in the bilateral anterior transition zone base to mi dgland extending slightly into the right posterior transition zone base and likely involving the anterior fibromuscular stroma (le eduin 1). 3. 1.6 cm borderline PI-RADS 3 lesion in the right posterior peripheral zone ba se to apex, difficult to delineate given fairly prominent background changes of presumed prostatitis (lesion 2). 4. No definite extracapsular extension, however, there is capsular abutment wel l over 1 cm by both lesions, which increases the risk of occult early/microscopic extracapsular extension. Note that this includ es the region of the right neurovascular bundle, which appears grossly unremarkable. 5. Mild left external iliac lymphadenopathy, nonspecific and potentially reacti ve. Given reported history of malignancy, recommend attention on CT or MRI follow-up. Comparison with any available outs aretha imaging may also be helpful. 6. Additional description as above. Reading Location: [id number]
== END | disposition home or self-care (01) ==
PROVIDERS: PCP Internal Medicine; Referring Provider Urology; Visit Provider Urology
DX: R97.20 Elevated prostate specific antigen [PSA] (principal)
CPT/HCPCS: 72197; A9575; A4216